=== PATIENT | female | born 1955 | race Two or more races ===

== ENCOUNTER 2024-10-02 08:39 | Inpatient (IN) | payer OTHER ==
[~2024-10-02] VITALS: Ht 162.6 cm; Wt 93.4 kg
[~2024-10-02 08:39] MED LIST: NORFLEX100MG PO; PERCOGESIC EXT1 EACH PO; SYNTHROID88 MCG PO
[2024-10-02 09:26] LABS: BASO % 1.4 % (0.1-1.2); EOS # 0.21 (0.04-0.54); EOS % 3.3 % (0.7-7.0); LYMPH # 1.56 (1.18-3.74); LYMPH % 24.7 % (19.3-53.1); MEAN PLATELET VOLUME 10.30 fl (9.4-12.4); MONO # 0.51 (0.24-0.82); MONO % 8.1 % (4.7-12.5); NEUT # 3.95 (1.56-6.13); NEUT % 62.5 % (34.0-71.1); RED CELL DISTRIBUTION WIDTH 13.3 % (11.6-14.4)
[2024-10-02] MEDS ORDERED: ATORVASTATIN CA10 MG PO (09:28)
[2024-10-02 09:29] LABS: URINE APPEARANCE Clear; URINE BILIRRUBIN Negative (NEGATIVE); URINE BLOOD Trace; URINE COLOR Yellow; URINE GLUCOSE Negative (NEGATIVE); URINE KETONE Negative (NEGATIVE); URINE LEUKOCYTE Moderate; URINE NITRATE Negative; URINE PROTEIN Negative (NEGATIVE); URINE UROBILINOGEN 0.2 E.U./dl
[2024-10-02 09:31] LABS: URINE BACTERIA 22.7 uL (0.0-1933); URINE EPITHELIAL CELLS 13.3 uL (0.0-38.8); URINE RBC 6.8 uL (0.0-20.8); URINE WBC 25.6 uL (0.0-23.2)
[2024-10-02 09:33] VITALS: BP 121/84
[2024-10-02 09:35] LABS: URINE CAST 0.00 uL (0.0-1.40)
[2024-10-02 09:53] LABS: INR 1.02
[2024-10-02 10:02] LABS: ALT/SGPT 29.0 U/L (12-78); AST/SGOT 15.0 U/L (15-37); BILIRUBIN TOTAL 0.45 mg/dL (0.3-1.2); BUN CREA RATIO 39.0 (7.0-25.0); CREATININE SERUM 0.7 mg/dL (0.55-1.02); GFR 82.97; GLOBULINA 3.0 G/DL (2.4-3.5); GLUCOSE FASTING 79.0 mg/dL (65-100); OSMOLALITY SERUM 289.0 MOSM/KG (275-295)
[2024-10-09] MEDS ORDERED: ONDANSETRON HCL 2 MG/ML VIAL IV PRN (11:15)
[2024-10-09] MEDS ORDERED: CEFAZOLIN SODIUM 1,000 MG VIAL IV SCH (12:00)
[2024-10-09] MEDS ORDERED: OxyCODONE HCL 5 MG TABLET (ROXICODONE) PO SCH (12:00)
[2024-10-09] MEDS ORDERED: MORPHINE SULFATE 4 MG/ML CARTRIDGE IV SCH (12:00)
[2024-10-09] MEDS ORDERED: TRANEXAMIC ACID 100MG/1ML (1000MG) AMPUL IV ONE (14:30)
[2024-10-09 16:40] VITALS: BP 134/80
[2024-10-09] MEDS ORDERED: ORPHENADRINE CITRATE 100 MG TABLET PO SCH (21:00)
[2024-10-09] MEDS ORDERED: GABAPENTIN 100 MG CAPSULE PO SCH (21:00)
[2024-10-10] VITALS: BP 111/71
[2024-10-10 00:49] LABS: BASO % 0.4 % (0.1-1.2); EOS # 0.01 (0.04-0.54); EOS % 0.1 % (0.7-7.0); LYMPH # 0.94 (1.18-3.74); LYMPH % 9.6 % (19.3-53.1); MEAN PLATELET VOLUME 10.70 fl (9.4-12.4); MONO # 0.72 (0.24-0.82); MONO % 7.3 % (4.7-12.5); NEUT # 8.10 (1.56-6.13); NEUT % 82.3 % (34.0-71.1); RED CELL DISTRIBUTION WIDTH 13.1 % (11.6-14.4)
[2024-10-10] MEDS ORDERED: PATIENTS OWN MEDICATION (MEDICAMENTO EN PISO) PO SCH (06:00)
[2024-10-10 08:54] VITALS: BP 126/76
[2024-10-10] MEDS ORDERED: ATORVASTATIN CALCIUM 10 MG TABLET PO SCH (09:00)
[2024-10-10] MEDS ORDERED: RIVAROXABAN 10 MG TAB PO SCH (09:00)
[2024-10-10] MEDS ORDERED: Cyanocobalamin/Mecobalamin 1 TAB.SL SL NR (12:00)
[2024-10-10] MEDS ORDERED: IRON FUM,PS/FOLIC ACID/VITC/B3 1 CAP CAPSULE PO NR (12:00)
[2024-10-10 13:37] LABS: COVID-19 AG NEGATIVE (NEGATIVE)
[2024-10-11] VITALS: BP 142/65
[2024-10-11 02:27] LABS: BASO % 0.4 % (0.1-1.2); EOS # 0.02 (0.04-0.54); EOS % 0.2 % (0.7-7.0); LYMPH # 1.08 (1.18-3.74); LYMPH % 11.8 % (19.3-53.1); MEAN PLATELET VOLUME 10.90 fl (9.4-12.4); MONO # 1.10 (0.24-0.82); MONO % 12.0 % (4.7-12.5); NEUT # 6.87 (1.56-6.13); NEUT % 75.4 % (34.0-71.1); RED CELL DISTRIBUTION WIDTH 13.2 % (11.6-14.4)
[2024-10-11] MEDS ORDERED: Cyanocobalamin/Mecobalamin 1 TAB.SL SL SCH (09:00)
[2024-10-11] MEDS ORDERED: IRON FUM,PS/FOLIC ACID/VITC/B3 1 CAP CAPSULE PO SCH (09:00)
[2024-10-11 09:52] VITALS: BP 118/77
[2024-10-11] MEDS ORDERED: GABAPENTIN100 MG PO (12:41)
[2024-10-11] MEDS ORDERED: NORFLEX100MG PO (12:41)
[2024-10-11] MEDS ORDERED: XARELTO10 MG PO (12:41)
[2024-10-11] MEDS ORDERED: PERCOCET 5-3251 EACH PO (12:42)
== END 2024-10-11 18:36 | DRG 470 ==
LOC: O/R 10-09 07:38 → SURH 10-09 09:00 → OB/GYN 10-09 15:51
PROVIDERS: ADMIT Orthopaedic Surgery; ATTEND Orthopaedic Surgery
PROC: 0SRC0JZ Replacement of Right Knee Joint with Synthetic Substitute, Open Approach (ICD-10-PCS; principal; 2024-10-09 14:00)
DX: M17.11 Unilateral primary osteoarthritis, right knee (principal); D62 Acute posthemorrhagic anemia; M85.661 Other cyst of bone, right lower leg; E03.9 Hypothyroidism, unspecified; G47.33 Obstructive sleep apnea (adult) (pediatric)

== ENCOUNTER 2024-11-26 06:48 | Inpatient (IN) | payer OTHER ==
[~2024-11-26] VITALS: Ht 160 cm; Wt 93.0 kg
[~2024-11-26 06:48] MED LIST changes: +ATORVASTATIN CA10 MG PO; +GABAPENTIN100 MG PO; +PERCOCET 5-3251 EACH PO; +XARELTO10 MG PO
--- NOTE | 2024-11-26 07:51 | NUR ---
PACIENTE ALERTA ORIENTADO X3 REFIERE DOLOR EN EL CUADRANTE INFERIOR DERECHO DESDE DAYNA. REFIERE A PALPACION. NO VOMITOS, NO DIARREAS, SE MIDE SIGNOS VITALES Y SE UBICA.
[2024-11-26] MEDS ORDERED: METRONIDAZOLE/SODIUM CHLORIDE 500 MG/100 ML PIGGYBACK IV ONE ×3 (08:15→15:08)
[2024-11-26] MEDS ORDERED: FAMOtidine 10 MG/ML (4ML VIAL) IV PUSH ONE (08:15)
[2024-11-26] MEDS ORDERED: CIPROFLOXACIN IN 5 % DEXTROSE 400 MG/200 ML PIGGYBAG IV ONE ×2 (08:15→08:35)
[2024-11-26] MEDS ORDERED: MORPHINE SULFATE 4 MG/ML CARTRIDGE IV ONE (08:15)
[2024-11-26] MEDS ORDERED: 0.9 % SODIUM CHLORIDE 1,000 ML IV ONE (08:15)
[2024-11-26] MEDS ORDERED: FAMOTIDINE/PF 20 MG/2 ML VIAL ONE (08:35)
[2024-11-26 08:41] LABS: BASO % 0.4 % (0.1-1.2); EOS # 0.03 (0.04-0.54); EOS % 0.2 % (0.7-7.0); LYMPH # 1.24 (1.18-3.74); LYMPH % 7.0 % (19.3-53.1); MEAN PLATELET VOLUME 10.00 fl (9.4-12.4); MONO # 1.22 (0.24-0.82); MONO % 6.9 % (4.7-12.5); NEUT # 15.06 (1.56-6.13); NEUT % 85.1 % (34.0-71.1); RED CELL DISTRIBUTION WIDTH 13.8 % (11.6-14.4)
--- NOTE | 2024-11-26 08:54 | NUR ---
PTE EVALUADA POR EL DR. GARCIA. SE OIRNETA SOBRE TRATAMIENTO, VERBALIZA ENTENDER. SE CANALZIA, COLECTAN MUESTRAS DE LAB Y SE ADMINISTRAN MEDICAMENTO PINKY ORDEN MEDICA BAJO MEDIDAS ASEPTICAS. SE NOTIFICA CT.
[2024-11-26 09:14] LABS: INR 1.08
[2024-11-26 09:16] LABS: URINE APPEARANCE Clear; URINE BILIRRUBIN Negative (NEGATIVE); URINE BLOOD Large; URINE COLOR Dark Yellow; URINE GLUCOSE Negative (NEGATIVE); URINE KETONE Negative (NEGATIVE); URINE LEUKOCYTE Moderate; URINE NITRATE Negative; URINE PROTEIN Trace (NEGATIVE); URINE UROBILINOGEN 1.0 E.U./dl
[2024-11-26 09:19] LABS: URINE BACTERIA 259.2 uL (0.0-1933); URINE CAST 2.78 uL (0.0-1.40); URINE EPITHELIAL CELLS 46.2 uL (0.0-38.8); URINE RBC 105.1 uL (0.0-20.8); URINE WBC 55.5 uL (0.0-23.2)
[2024-11-26 09:22] LABS: ALT/SGPT 28.0 U/L (12-78); AST/SGOT 20.0 U/L (15-37); BILIRUBIN TOTAL 0.53 mg/dL (0.3-1.2); BUN CREA RATIO 26.0 (7.0-25.0); CREATININE SERUM 0.62 mg/dL (0.55-1.02); GFR 95.44; GLOBULINA 4.0 G/DL (2.4-3.5); GLUCOSE FASTING 108.0 mg/dL (65-100); OSMOLALITY SERUM 281.0 MOSM/KG (275-295)
[2024-11-26 09:29] LABS: URINE CRYSTALS FEW /HPF
[2024-11-26 09:48] LABS: COVID-19 AG NEGATIVE (NEGATIVE)
[2024-11-26] MEDS ORDERED: CIPROFLOXACIN IN 5 % DEXTROSE 200 ML IV SCH (11:46)
[2024-11-26] MEDS ORDERED: PANTOPRAZOLE SODIUM 40 MG in 0.9 % SODIUM CHLORIDE 8 ML IV PUSH SCH (11:49)
[2024-11-26] MEDS ORDERED: ATORVASTATIN CALCIUM 10 MG TABLET PO SCH (11:52)
[2024-11-26] MEDS ORDERED: MORPHINE SULFATE 4 MG/ML CARTRIDGE IV PRN (12:00)
[2024-11-26] MEDS ORDERED: ONDANSETRON HCL 4 MG in 0.9 % SODIUM CHLORIDE 50 ML IV PRN (12:00)
[2024-11-26] MEDS ORDERED: DEXTROSE 5 % AND 0.9 % NACL 1,000 ML IV SCH (12:00)
[2024-11-26 14:45] VITALS: BP 136/78
[2024-11-26] MEDS ORDERED: ACETAMINOPHEN 500 MG GEL..CAP PO ONE (14:57)
[2024-11-26] MEDS ORDERED: ACETAMINOPHEN 500 MG GEL..CAP PO PRN (15:15)
[2024-11-26 16:47] VITALS: BP 100/65; O2SAT 98
[2024-11-26 17:57] VITALS: BP 104/69; O2SAT 98
[2024-11-27 02:58] VITALS: BP 129/77; O2SAT 95
[2024-11-27] MEDS ORDERED: LEVOTHYROXINE SODIUM 88 MCG TABLET PO SCH (06:00)
[2024-11-27 09:09] VITALS: BP 129/81; O2SAT 95
[2024-11-27 16:00] VITALS: BP 148/68; O2SAT 99
[2024-11-28] VITALS: BP 114/72; O2SAT 96
[2024-11-28 06:23] LABS: BASO % 0.3 % (0.1-1.2); EOS # 0.04 (0.04-0.54); EOS % 0.2 % (0.7-7.0); LYMPH # 1.10 (1.18-3.74); LYMPH % 6.4 % (19.3-53.1); MEAN PLATELET VOLUME 10.50 fl (9.4-12.4); MONO # 1.10 (0.24-0.82); MONO % 6.4 % (4.7-12.5); NEUT # 14.89 (1.56-6.13); NEUT % 86.1 % (34.0-71.1); RED CELL DISTRIBUTION WIDTH 14.0 % (11.6-14.4)
[2024-11-28 06:31] LABS: BUN CREA RATIO 22.0 (7.0-25.0); CREATININE SERUM 0.49 mg/dL (0.55-1.02); GFR 125.22; GLUCOSE FASTING 88.0 mg/dL (65-100); OSMOLALITY SERUM 274.0 MOSM/KG (275-295)
[2024-11-28] MEDS ORDERED: GABAPENTIN 300 MG CAPSULE PO SCH (09:00)
[2024-11-28 10:08] VITALS: BP 102/70; O2SAT 97
[2024-11-28] MEDS ORDERED: ACETAMINOPHEN 500 MG GEL..CAP PO SCH (14:00)
[2024-11-28 17:26] VITALS: BP 142/82; O2SAT 98
[2024-11-29] VITALS: BP 130/83; O2SAT 95
[2024-11-29 08:00] VITALS: BP 144/86; O2SAT 98
[2024-11-29] MEDS ORDERED: ENOXAPARIN SODIUM 40 MG/0.4 ML SYRINGE SUBCUTANEO SCH (09:00)
[2024-11-29 14:21] LABS: BASO % 0.4 % (0.1-1.2); EOS # 0.11 (0.04-0.54); EOS % 0.9 % (0.7-7.0); LYMPH # 1.45 (1.18-3.74); LYMPH % 12.3 % (19.3-53.1); MEAN PLATELET VOLUME 9.70 fl (9.4-12.4); MONO # 0.89 (0.24-0.82); MONO % 7.6 % (4.7-12.5); NEUT # 9.19 (1.56-6.13); NEUT % 78.3 % (34.0-71.1); RED CELL DISTRIBUTION WIDTH 13.7 % (11.6-14.4)
[2024-11-29 16:59] VITALS: BP 127/79; O2SAT 99
[2024-11-30] VITALS: BP 145/80; O2SAT 95
[2024-11-30 08:39] VITALS: BP 108/65; O2SAT 98
[2024-11-30 16:00] VITALS: BP 108/74; O2SAT 100
[2024-12-01] VITALS: BP 121/54; O2SAT 95
[2024-12-01 08:00] VITALS: BP 117/73; O2SAT 97
[2024-12-01] MEDS ORDERED: BISACODYL 10 MG/SUPP.RECT SUPP.RECT RECTAL SCH (11:00)
[2024-12-01 12:10] LABS: BASO % 0.4 % (0.1-1.2); EOS # 0.06 (0.04-0.54); EOS % 0.4 % (0.7-7.0); LYMPH # 1.62 (1.18-3.74); LYMPH % 11.2 % (19.3-53.1); MEAN PLATELET VOLUME 9.90 fl (9.4-12.4); MONO # 1.06 (0.24-0.82); MONO % 7.3 % (4.7-12.5); NEUT # 11.52 (1.56-6.13); NEUT % 79.9 % (34.0-71.1); RED CELL DISTRIBUTION WIDTH 13.9 % (11.6-14.4)
[2024-12-01 16:00] VITALS: BP 120/81; O2SAT 96
[2024-12-02] VITALS: BP 101/66; O2SAT 97
[2024-12-02 08:26] VITALS: BP 118/65; O2SAT 99
[2024-12-02 16:00] VITALS: BP 123/72; O2SAT 99
[2024-12-03] VITALS: BP 117/71; O2SAT 99
[2024-12-03] MEDS ORDERED: MORPHINE SULFATE 4 MG/ML CARTRIDGE IV PRN (04:45)
[2024-12-03 06:13] LABS: BASO % 0.6 % (0.1-1.2); EOS # 0.16 (0.04-0.54); EOS % 1.5 % (0.7-7.0); LYMPH # 1.56 (1.18-3.74); LYMPH % 15.0 % (19.3-53.1); MEAN PLATELET VOLUME 9.70 fl (9.4-12.4); MONO # 0.97 (0.24-0.82); MONO % 9.3 % (4.7-12.5); NEUT # 7.57 (1.56-6.13); NEUT % 72.7 % (34.0-71.1); RED CELL DISTRIBUTION WIDTH 14.2 % (11.6-14.4)
[2024-12-03 06:44] LABS: ALT/SGPT 48.0 U/L (12-78); AST/SGOT 62.0 U/L (15-37); BILIRUBIN TOTAL 0.26 mg/dL (0.3-1.2); BUN CREA RATIO 10.0 (7.0-25.0); CREATININE SERUM 0.48 mg/dL (0.55-1.02); GFR 128.23; GLOBULINA 3.4 G/DL (2.4-3.5); GLUCOSE FASTING 98.0 mg/dL (65-100); OSMOLALITY SERUM 288.0 MOSM/KG (275-295)
[2024-12-03 07:18] VITALS: BP 132/82; O2SAT 98
[2024-12-03 16:17] VITALS: BP 114/78; O2SAT 99
[2024-12-03] MEDS ORDERED: CEFEPIME HCL 2,000 MG in 0.9 % SODIUM CHLORIDE 100 ML IV SCH (17:32)
[2024-12-03] MEDS ORDERED: MIDAZOLAM HCL 2 MG/2 ML VIAL IV PUSH ONE (18:30)
[2024-12-03] MEDS ORDERED: fentaNYL CITRATE 50 MCG/ML AMPUL IV PUSH ONE (18:30)
[2024-12-03] MEDS ORDERED: CIPROFLOXACIN HCL 500 MG TABLET PO SCH (21:00)
[2024-12-04 01:26] VITALS: BP 104/62; O2SAT 99
[2024-12-04 07:30] VITALS: BP 104/66; O2SAT 100
[2024-12-04 17:02] VITALS: BP 108/74
[2024-12-05 01:14] VITALS: BP 107/65; O2SAT 99
[2024-12-05 07:50] VITALS: BP 118/76
[2024-12-05 16:40] VITALS: BP 116/67; O2SAT 99
[2024-12-05 23:38] VITALS: BP 116/67; O2SAT 97
[2024-12-06 08:00] VITALS: BP 118/74; O2SAT 95
[2024-12-06] MEDS ORDERED: DIATRIZOATE MEGLUMINE, SODIUM 30 ML BOTTLE PO ONE (17:30)
[2024-12-06 18:21] VITALS: BP 121/78; O2SAT 98
[2024-12-07 02:50] VITALS: BP 108/69; O2SAT 97
[2024-12-07] MEDS ORDERED: DIATRIZOATE MEGLUMINE, SODIUM 30 ML BOTTLE PO NR (05:00)
[2024-12-07 06:28] LABS: BASO % 0.9 % (0.1-1.2); EOS # 0.27 (0.04-0.54); EOS % 4.1 % (0.7-7.0); LYMPH # 1.92 (1.18-3.74); LYMPH % 29.4 % (19.3-53.1); MEAN PLATELET VOLUME 9.40 fl (9.4-12.4); MONO # 0.77 (0.24-0.82); MONO % 11.8 % (4.7-12.5); NEUT # 3.49 (1.56-6.13); NEUT % 53.3 % (34.0-71.1); RED CELL DISTRIBUTION WIDTH 14.4 % (11.6-14.4)
[2024-12-07 08:45] VITALS: BP 105/71; O2SAT 96
[2024-12-07] MEDS ORDERED: CEFTRIAXONE SODIUM 2,000 MG in 0.9 % SODIUM CHLORIDE 100 ML IV SCH (09:00)
[2024-12-07] MEDS ORDERED: ACETAMINOPHEN 500 MG GEL..CAP PO PRN (13:15)
[2024-12-07 15:52] VITALS: BP 101/67; O2SAT 100
[2024-12-08 01:00] VITALS: BP 101/61; O2SAT 97
[2024-12-08 08:00] VITALS: BP 100/68; O2SAT 98
[2024-12-08] MEDS ORDERED: MORPHINE SULFATE 4 MG/ML CARTRIDGE IV PRN (11:30)
[2024-12-08 21:43] VITALS: BP 119/80; O2SAT 99
[2024-12-09 00:21] VITALS: BP 102/61; O2SAT 99
[2024-12-09 08:28] VITALS: BP 100/63; O2SAT 98
[2024-12-09 16:35] VITALS: BP 111/73; O2SAT 98
[2024-12-10 01:10] VITALS: BP 113/72; O2SAT 97
[2024-12-10 08:00] VITALS: BP 96/61; O2SAT 97
[2024-12-10 16:31] VITALS: BP 128/86; O2SAT 100
[2024-12-11 00:16] VITALS: BP 111/68; O2SAT 97
[2024-12-11 08:00] VITALS: BP 127/83; O2SAT 99
[2024-12-11 16:10] VITALS: BP 131/83; O2SAT 100
[2024-12-12 00:31] VITALS: BP 114/72; O2SAT 97
[2024-12-12 12:29] LABS: BASO % 1.4 % (0.1-1.2); EOS # 0.16 (0.04-0.54); EOS % 2.8 % (0.7-7.0); LYMPH # 1.30 (1.18-3.74); LYMPH % 22.8 % (19.3-53.1); MEAN PLATELET VOLUME 9.40 fl (9.4-12.4); MONO # 0.64 (0.24-0.82); MONO % 11.2 % (4.7-12.5); NEUT # 3.49 (1.56-6.13); NEUT % 61.4 % (34.0-71.1); RED CELL DISTRIBUTION WIDTH 14.9 % (11.6-14.4)
[2024-12-12 12:53] LABS: ALT/SGPT 29.0 U/L (12-78); AST/SGOT 22.0 U/L (15-37); BILIRUBIN TOTAL 0.17 mg/dL (0.3-1.2); BUN CREA RATIO 23.0 (7.0-25.0); CREATININE SERUM 0.44 mg/dL (0.55-1.02); GFR 141.36; GLOBULINA 3.0 G/DL (2.4-3.5); GLUCOSE FASTING 85.0 mg/dL (65-100); OSMOLALITY SERUM 283.0 MOSM/KG (275-295)
[2024-12-12 16:14] VITALS: BP 121/72; O2SAT 99
[2024-12-13 01:05] VITALS: BP 119/74; O2SAT 98
[2024-12-13 10:04] VITALS: BP 96/62; O2SAT 96
[2024-12-13] MEDS ORDERED: DIATRIZOATE MEGLUMINE, SODIUM 30 ML BOTTLE PO NR (15:00)
[2024-12-13 16:00] VITALS: BP 113/65; O2SAT 99
[2024-12-14 01:06] VITALS: BP 103/56; O2SAT 97
[2024-12-14 08:00] VITALS: BP 113/72; O2SAT 96
== END 2024-12-14 13:50 | disposition home or self-care (01) | DRG 373 ==
LOC: ER 06:49 → SEC-K 11:41 → SURG 15:41 → SURH 12-07 19:05
PROVIDERS: General Practice; Internal Medicine Infectious Disease; Student in an Organized Health Care Education/Training Program; ADMIT Student in an Organized Health Care Education/Training Program; ATTEND Student in an Organized Health Care Education/Training Program
PROC: BW21YZZ Computerized Tomography (CT Scan) of Abdomen and Pelvis using Other Contrast (ICD-10-PCS; 2024-11-26)
PROC: B54NZZZ Ultrasonography of Left Upper Extremity Veins (ICD-10-PCS; 2024-11-29)
PROC: 02HV33Z Insertion of Infusion Device into Superior Vena Cava, Percutaneous Approach (ICD-10-PCS; 2024-11-29)
PROC: BW21YZZ Computerized Tomography (CT Scan) of Abdomen and Pelvis using Other Contrast (ICD-10-PCS; 2024-12-02)
PROC: 0H97X0Z Drainage of Abdomen Skin with Drainage Device, External Approach (ICD-10-PCS; principal; 2024-12-03)
PROC: B54DZZZ Ultrasonography of Bilateral Lower Extremity Veins (ICD-10-PCS; 2024-12-04)
PROC: BW21YZZ Computerized Tomography (CT Scan) of Abdomen and Pelvis using Other Contrast (ICD-10-PCS; 2024-12-07)
PROC: BW21YZZ Computerized Tomography (CT Scan) of Abdomen and Pelvis using Other Contrast (ICD-10-PCS; 2024-12-13)
DX: K35.33 Acute appendicitis with perforation, localized peritonitis, and gangrene, with abscess (principal); D72.829 Elevated white blood cell count, unspecified; E66.9 Obesity, unspecified

== ENCOUNTER 2025-01-21 07:00 | Inpatient (IN) | payer OTHER ==
[2025-01-16 10:01] VITALS: BP 122/81
[2025-01-16 10:09] LABS: URINE APPEARANCE Clear; URINE BILIRRUBIN Negative (NEGATIVE); URINE BLOOD Small; URINE COLOR Yellow; URINE GLUCOSE Negative (NEGATIVE); URINE KETONE Negative (NEGATIVE); URINE LEUKOCYTE Moderate; URINE NITRATE Negative; URINE PROTEIN Negative (NEGATIVE); URINE UROBILINOGEN 0.2 E.U./dl
[2025-01-16 10:13] LABS: URINE BACTERIA 349.0 uL (0.0-1933); URINE EPITHELIAL CELLS 33.0 uL (0.0-38.8); URINE RBC 19.5 uL (0.0-20.8); URINE WBC 53.8 uL (0.0-23.2)
[2025-01-16 10:15] LABS: URINE CAST 0.00 uL (0.0-1.40)
[2025-01-16 10:41] LABS: BASO % 1.4 % (0.1-1.2); EOS # 0.21 (0.04-0.54); EOS % 4.1 % (0.7-7.0); LYMPH # 1.46 (1.18-3.74); LYMPH % 28.5 % (19.3-53.1); MEAN PLATELET VOLUME 10.30 fl (9.4-12.4); MONO # 0.43 (0.24-0.82); MONO % 8.4 % (4.7-12.5); NEUT # 2.94 (1.56-6.13); NEUT % 57.4 % (34.0-71.1); RED CELL DISTRIBUTION WIDTH 13.6 % (11.6-14.4)
[2025-01-16 10:51] LABS: INR 0.98
[2025-01-16 10:55] LABS: ALT/SGPT 27.0 U/L (12-78); AST/SGOT 19.0 U/L (15-37); BILIRUBIN TOTAL 0.51 mg/dL (0.3-1.2); BUN CREA RATIO 34.0 (7.0-25.0); CREATININE SERUM 0.59 mg/dL (0.55-1.02); GFR 100.77; GLOBULINA 3.5 G/DL (2.4-3.5); GLUCOSE FASTING 87.0 mg/dL (65-100); OSMOLALITY SERUM 289.0 MOSM/KG (275-295)
[~2025-01-21] VITALS: Ht 99.1 cm; Wt 91.6 kg
[2025-01-21] MEDS ORDERED: CLINDAMYCIN PHOSPHATE 150 MG/ML (900mg) IV ONE (09:30)
[2025-01-21] MEDS ORDERED: RINGERS SOLUTION,LACTATED 1,000 ML IV SCH (13:00)
[2025-01-21] MEDS ORDERED: ONDANSETRON HCL 2 MG/ML VIAL IV PRN (13:00)
[2025-01-21] MEDS ORDERED: MORPHINE SULFATE 4 MG/ML CARTRIDGE IV SCH (13:00)
[2025-01-21] MEDS ORDERED: ACETAMINOPHEN 325 MG TABLET PO SCH (17:00)
[2025-01-21 20:56] VITALS: BP 136/90; O2SAT 96
[2025-01-22 00:55] VITALS: BP 126/84; O2SAT 96
[2025-01-22] MEDS ORDERED: LEVOTHYROXINE SODIUM 88 MCG TABLET PO SCH (06:00)
[2025-01-22 06:14] LABS: BASO % 0.6 % (0.1-1.2); EOS # 0.05 (0.04-0.54); EOS % 0.6 % (0.7-7.0); LYMPH # 1.06 (1.18-3.74); LYMPH % 12.8 % (19.3-53.1); MEAN PLATELET VOLUME 10.20 fl (9.4-12.4); MONO # 0.60 (0.24-0.82); MONO % 7.3 % (4.7-12.5); NEUT # 6.46 (1.56-6.13); NEUT % 78.3 % (34.0-71.1); RED CELL DISTRIBUTION WIDTH 13.4 % (11.6-14.4)
[2025-01-22 08:00] VITALS: BP 125/82; O2SAT 96
[2025-01-22] MEDS ORDERED: ENOXAPARIN SODIUM 40 MG/0.4 ML SYRINGE SUBCUTANEO SCH (09:00)
[2025-01-22 16:03] VITALS: BP 158/82; O2SAT 96
[2025-01-23 00:30] VITALS: BP 145/79; O2SAT 97
[2025-01-23 09:23] VITALS: BP 146/90; O2SAT 97
== END 2025-01-23 12:26 | disposition home or self-care (01) | DRG 399 ==
LOC: CIR.AMB 07:00 → O/R 15:42 → CIR.AMB 15:45 → SURG 16:07 → SURH 17:45
PROVIDERS: ADMIT Student in an Organized Health Care Education/Training Program; ATTEND Student in an Organized Health Care Education/Training Program
PROC: 0DTJ0ZZ Resection of Appendix, Open Approach (ICD-10-PCS; principal; 2025-01-21 15:45)
DX: K35.32 Acute appendicitis with perforation, localized peritonitis, and gangrene, without abscess (principal)